=== PATIENT | male | born 1940 | race Caucasian/White ===

== ENCOUNTER 2018-11-07 11:13 | Emergency (ER) | payer MEDICARE ==
[2018-11-07 12:10] LABS: RAPID GROUP A STREP NEGATIVE (NEGATIVE)
== END 2018-11-07 12:51 | disposition home or self-care (01) ==
LOC: EDH 11:13
DX: J01.90 Acute sinusitis, unspecified (principal); I10 Essential (primary) hypertension; E78.5 Hyperlipidemia, unspecified; I48.91 Unspecified atrial fibrillation; Z87.891 Personal history of nicotine dependence
CPT/HCPCS: 87804; 87880